=== PATIENT | female | born 1980 | race Caucasian/White ===

== ENCOUNTER → 2016-08-29 | Outpatient (CLI) | payer BC ==
[2016-08-29 16:39] LABS: Appearance,CSF Clear
[2016-08-31 13:28] LABS: Immunoglobulin G 634 mg/dL (700 - 1600)
[2016-08-31 22:55] LABS: Lyme Specimen Source Not Provided
== END | disposition home or self-care (01) ==
LOC: LABWHC1 09:42
PROVIDERS: ATTEND Psychiatry & Neurology Pain Medicine
DX: R90.82 White matter disease, unspecified (principal); R53.83 Other fatigue
CPT/HCPCS: 36415; 82040; 82042; 82784; 83873; 83916; 84157; 87476; 88108; 89050

== ENCOUNTER → 2017-05-26 | Outpatient (CLI) | payer BC ==
[2017-05-26 11:12] LABS: ALT 33 U/L (9-52); AST 20 U/L (14-36); Albumin 4.3 g/dL (3.5-5.0); Alkaline Phosphatase 51 U/L (38-126); Anion Gap 10 mmol/L; Blood Urea Nitrogen 11 mg/dL (7-17); Carbon Dioxide 26 mmol/L (22-30); Chloride 103 mmol/L (98-107); Glucose 92 mg/dL (74-99); Potassium 4.4 mmol/L (3.5-5.1); Sodium 139 mmol/L (137-145); Total Bilirubin 0.2 mg/dL (0.2-1.3); Total Protein 6.8 g/dL (6.3-8.2)
[2017-05-26 17:12] LABS: Folate, Serum 21.2 ng/mL
[2017-05-26 17:34] LABS: Hepatitis A Antibody IgM Non-Reactive (Non-Reactive); Hepatitis B Core IgM Non-Reactive (Non-Reactive)
[2017-05-26 17:38] LABS: HIV AB P24 Non-Reactive (Non-Reactive); HIV P24 AG Non-Reactive (Non-Reactive)
[2017-05-26 19:38] LABS: Hemoglobin A1C 4.9 % (4.0-6.0)
[2017-05-29 03:33] LABS: Varicella IgM Antibody 0.46 INDEX (<=0.90)
[2017-05-30 02:24] LABS: Vitamin B1 48 ug/L (38-122)
[2017-05-30 06:53] LABS: Vitamin B6 41 ug/L (5-50)
[2017-06-01 15:16] LABS: Nicotinuric Acid None Detected
== END | disposition home or self-care (01) ==
LOC: LABWHC1 09:51
PROVIDERS: ATTEND Psychiatry & Neurology Pain Medicine
DX: G35 Multiple sclerosis (principal)
CPT/HCPCS: 36415; 80053; 80074; 82607; 82746; 83036; 84207; 84425; 84591; 86787; 87390; 93005

== ENCOUNTER → 2018-03-08 | Outpatient (CLI) | payer BC ==
[2018-03-08 13:09] LABS: Basophils % (A) 0 %; Eosinophils # (A) 0.2 k/uL (0-0.7); Eosinophils % (A) 2 %; HCT 35.4 % (34.0-46.0); HGB 11.6 gm/dL (11.4-16.0); Lymphocytes # (A) 0.9 k/uL (1.0-4.8); Lymphocytes % (A) 13 %; MCHC 32.8 g/dL (31.0-37.0); MCV 82.3 fL (80.0-100.0); Monocytes # (A) 0.3 k/uL (0-1.0); Monocytes % (A) 5 %; Neutrophils # (A) 5.2 k/uL (1.3-7.7); Neutrophils % (A) 78 %; Platelet Count 291 k/uL (150-450); WBC 6.8 k/uL (3.8-10.6)
[2018-03-08 13:30] LABS: ALT 31 U/L (9-52); AST 20 U/L (14-36); Albumin 3.9 g/dL (3.5-5.0); Alkaline Phosphatase 42 U/L (38-126); Anion Gap 5 mmol/L; Blood Urea Nitrogen 11 mg/dL (7-17); Calcium 9.7 mg/dL (8.4-10.2); Carbon Dioxide 24 mmol/L (22-30); Chloride 107 mmol/L (98-107); Glucose 89 mg/dL (74-99); Potassium 4.4 mmol/L (3.5-5.1); Sodium 136 mmol/L (137-145); Total Bilirubin 0.3 mg/dL (0.2-1.3); Total Protein 6.3 g/dL (6.3-8.2)
[2018-03-08 13:45] LABS: T4, Free (Free Thyroxine) 1.05 ng/dL (0.78-2.19)
[2018-03-08 18:44] LABS: Folate, Serum 16.8 ng/mL
[2018-03-08 18:46] LABS: Vitamin D 25 Hydroxy 29.7 ng/mL (30.0-100.0)
[2018-03-08 20:15] LABS: Hepatitis A Antibody IgM Non-Reactive (Non-Reactive); Hepatitis B Core IgM Non-Reactive (Non-Reactive); Hepatitis B Surface AB- Quant 3.5 mIU/mL
[2018-03-08 20:39] LABS: HIV 1 AB Non-Reactive (Non-Reactive); HIV AB P24 Non-Reactive (Non-Reactive); HIV P24 AG Non-Reactive (Non-Reactive)
--- NOTE | 2018-03-09 07:59 | MR ---
EXAMINATION TYPE: MR brain/cspine wo/w DATE OF EXAM: 03/08/2018 COMPARISON: Outside brain and cervical spine MRI May 11, 2017 HISTORY: MS TECHNIQUE: Multiplanar, multisequence images of the cervical spine, brain, and brainstem are all performed witho ut and with IV contrast, utilizing 11 mL intravenous Gadavist gadolinium contrast is administered int ravenously. Demyelinating disease protocol with additional Sagittal Flair sequence performed of the brain and brainstem and PD sagittal sequence of cervical spine all acquired. FINDINGS: BRAIN: T2 Lesions Present : Yes Approximate Number of Lesions: Approximately 10-12 Locations Identified : Scattered Size of Reference Lesion(s): 1. 2.2 x 1.4 x 1.6 cm posterior left frontal subcortical enhancing lesion axial image 19 and sagittal image 6 redemonstrated felt larger in size versus prior. 2 1.0 x 0.7 x 0.8 cm on axial image 25 and sagittal image 14 high left parietal subcortical lesion st able from prior Enhancing Lesion(s) Present: Yes 6. Stable single enhancing lesion. T1 Hypointense Lesion(s) Present: Yes Change from Prior: Stable Diffusion weighted images demonstrate no evidence of a recent infarct or other diffusion abnormality. There is no worrisome extra-axial fluid collection. The ventricular system and cisternal spaces ar e normal in size and appearance. The brain volume is age appropriate. Midline structures demonstrate normal morphology. The craniocervical junction appears within normal limits. Post contrast images demonstrate no abnormal enhancement. The dural venous sinuses appear pa tent. The visualized sinuses are clear and the globes are intact. IMPRESSION: Mild to moderate white matter changes most likely on basis of known multiple sclerosis re demonstrated. No new lesions are seen. Dominant enhancing lesion is slightly larger versus prior crowley orion. C-SPINE: FINDINGS: Sagittal images of the cervical spine show the craniocervical junction to remains within no rmal limits. The cervical and upper thoracic spinal cord is normal in course, caliber, and signal. Vertebral alignment is stable and anatomic. The vertebral body and intravertebral disk heights are n ormal. No suspicious posterior disc herniations are seen. The bone marrow signal intensity is within normal limits. No suspicious enhancement is noted Axial images show there is no significant focal disk disease, spinal canal stenosis, neural foraminal narrowing, or spinal cord compromise at any cervical level. IMPRESSION: Unremarkable MRI of the cervical spine, no significant change from prior. No evidence for demyelinating disease involvement in the cervical spinal cord.
[2018-03-13 09:28] LABS: Vitamin B1 65 ug/L (38-122)
[2018-03-14 17:20] LABS: Nicotinuric Acid None Detected
== END | disposition home or self-care (01) ==
LOC: RADMRIMAIN 11:16
PROVIDERS: ATTEND Psychiatry & Neurology Neurology
DX: G35 Multiple sclerosis (principal); Z51.81 Encounter for therapeutic drug level monitoring
CPT/HCPCS: 84591; 84207; 84439; 84425; 84481; 80053; 80074; 82607; 82746; 84443; 85025; 86706; 82306; 86704; 87390; 83036; 70553; 72156; 36415; A9585

== ENCOUNTER → 2019-01-29 | Outpatient (CLI) | payer BC ==
[2019-01-29 14:47] VITALS: BP 168/92; PULSE 99; RESP 16; TEMP 98.2; BMI 43.7
--- NOTE | 2019-01-29 22:14 | P.BASOAP ---
Subjective Progress Note Date: 01/29/19 Principal diagnosis: Morbid obesity Patient is known to our service. Patient with history of previous lap band placement. For the last few months has had increasing heartburn. Dysphagia every 1-2 days. Patient's weight currently is close to her preoperative weight. Diagnosed with a mass in the last few years. Stress lately. Patient was unsure how much fluid in her band. Objective - Vital Signs Vital signs: Vital Signs Temp 98.2 F 01/29/19 14:39 Pulse 99 01/29/19 14:39 Resp 16 01/29/19 14:39 BP 168/92 01/29/19 14:39 Pulse Ox Intake & Output 01/29/19 01/29/19 01/30/19 06:59 18:59 06:59 Weight 115.439 kg - Exam Abdomen: Soft, nontender, nondistended Assessment/Plan (1) GERD (gastroesophageal reflux disease) Narrative/Plan: Clinical scenario discussed with the patient in detail. Under sterile condition her band was accessed. No fluid present within the port. Patient is interested in band removal with given the suspected leaking port is reasonable. We'll schedule upper endoscopy at this time. We'll plan band removal following. The risks and benefits of both upper endoscopy and lap and removal discussed in detail with the patient and her mother. Risks of bleeding, infection, perforation, laparotomy, persistent dysphagia and reflux, weight gain reviewed. She understands and wishes to proceed. Plan: Date: 01/29/19 Initial Weight: 117.934 kg Initial BMI: 44.6 Current Weight: 115.439 kg Current BMI: 43.7 Type of Surgery: Adjustable Gastric Banding Total Volume in Band: Previous Volume: Volume Removed: Volume Added: Band Size:
== END | disposition home or self-care (01) ==
LOC: BARWHC3 14:18
PROVIDERS: ATTEND Surgery
DX: K21.9 Gastro-esophageal reflux disease without esophagitis (principal); Z98.84 Bariatric surgery status
CPT/HCPCS: 99212

== ENCOUNTER → 2019-02-01 | Outpatient (CLI) | payer BC ==
[2019-02-01 13:59] LABS: Basophils % (A) 1 %; Eosinophils # (A) 0.2 k/uL (0-0.7); Eosinophils % (A) 2 %; HCT 38.1 % (34.0-46.0); HGB 12.4 gm/dL (11.4-16.0); Lymphocytes # (A) 0.9 k/uL (1.0-4.8); Lymphocytes % (A) 11 %; MCH 27.5 pg (25.0-35.0); MCHC 32.6 g/dL (31.0-37.0); MCV 84.5 fL (80.0-100.0); Mean Platelet Volume 6.1; Monocytes # (A) 0.4 k/uL (0-1.0); Monocytes % (A) 5 %; Neutrophils # (A) 7.1 k/uL (1.3-7.7); Neutrophils % (A) 81 %; Platelet Count 293 k/uL (150-450); RDW 14.5 % (11.5-15.5); WBC 8.7 k/uL (3.8-10.6)
[2019-02-01 14:09] LABS: ALT 30 U/L (9-52); AST 20 U/L (14-36); African American GFR (CKD) >90 (>60 ml/min/1.73 sqM); Albumin 4.3 g/dL (3.5-5.0); Alkaline Phosphatase 49 U/L (38-126); Anion Gap 8 mmol/L; Blood Urea Nitrogen 13 mg/dL (7-17); Calcium 9.8 mg/dL (8.4-10.2); Carbon Dioxide 27 mmol/L (22-30); Chloride 104 mmol/L (98-107); Glucose 103 mg/dL (74-99); Potassium 4.4 mmol/L (3.5-5.1); Sodium 139 mmol/L (137-145); Total Bilirubin 0.4 mg/dL (0.2-1.3); Total Protein 6.8 g/dL (6.3-8.2)
== END | disposition home or self-care (01) ==
LOC: LABPAT 12:45
PROVIDERS: ATTEND Surgery
DX: Z01.818 Encounter for other preprocedural examination (principal); Z01.812 Encounter for preprocedural laboratory examination
CPT/HCPCS: 80053; 85025; 93005

== ENCOUNTER 2019-02-20 09:14 | Day surgery (SDC) | payer BC ==
[2019-02-15 13:18] VITALS: BMI 42.9
[~2019-02-20 09:14] MED LIST: LACTATED RINGERS 1,000 ML IV SCH; LIDOCAINE 1% 20 ML VIAL (10MG/ML) FOR IV START INTRADERMA PRN
[2019-02-20 09:34] VITALS: RESP 16; TEMP 97.5
--- NOTE | 2019-02-20 09:42 | P.GSHP ---
History of Present Illness H&P Date: 02/20/19 Chief Complaint: Dysphagia, heartburn Patient seen recently in the bariatric clinic. History of previous lap band placement. Patient lately has had dysphagia and worsening heartburn. During recent visit the patient's port was emptied and we suspect a leak from the lap band tubing. Past Medical History Past Medical History: Cancer, GERD/Reflux, Musculoskeletal Disorder, Thyroid Disorder Additional Past Medical History / Comment(s): Hx of hodgkins lymphoma, melanoma on back. Muscular Sclerosis. History of Any Multi-Drug Resistant Organisms: None Reported Past Surgical History: Bariatric Surgery, Orthopedic Surgery Additional Past Surgical History / Comment(s): Right ankle surgery, melanoma removed from back. Past Anesthesia/Blood Transfusion Reactions: No Reported Reaction Past Psychological History: No Psychological Hx Reported Smoking Status: Never smoker Past Alcohol Use History: Occasional Past Drug Use History: None Reported - Past Family History Father Family Medical History: Cancer Additional Family Medical History / Comment(s): Prostate cancer. Medications and Allergies Home Medications Medication Instructions Recorded Confirmed Type Levothyroxine Sodium 100 mcg PO QAM 02/15/19 02/20/19 History Nalprexone 4.5 mg PO DAILY 02/15/19 02/20/19 History Allergies Allergy/AdvReac Type Severity Reaction Status Date / Time adhesive AdvReac Rash/Hives Verified 02/20/19 09:39 Surgical - Exam Vital Signs Temp Pulse Resp BP Pulse Ox 97.5 F L 72 16 149/88 98 02/20/19 09:33 02/20/19 09:33 02/20/19 09:33 02/20/19 09:33 02/20/19 09:33 Physical exam: General: Well-developed, well-nourished HEENT: Normocephalic, sclerae nonicteric Abdomen: Nontender, nondistended Extremities: No edema Neuro: Alert and oriented Assessment and Plan (1) GERD (gastroesophageal reflux disease) Narrative/Plan: Will proceed with upper endoscopy at this time. Current Visit: No Status: Acute Code(s): K21.9 - GASTRO-ESOPHAGEAL REFLUX DISEASE WITHOUT ESOPHAGITIS SNOMED Code(s): 554583631
[2019-02-20] MEDS ORDERED: LIDOCAINE 1% INJ 10MG/ML (20 ML MDV) ONE (09:49)
[2019-02-20] MEDS ORDERED: PROPOFOL 10 MG/ML 20 ML VIAL IV ONE (09:49)
--- NOTE | 2019-02-20 09:57 | P.PCN ---
Date of Procedure: 02/20/19 Procedure(s) Performed: Preoperative Dx: GERD, dysphagia Postoperative Dx: Mild gastritis, mild distal esophagitis Procedure: EGD with Bx Anesthesia: Sedation Endoscopist: Dr. Almodovar Specimens: Antrum, distal esophagus Endoscopic Procedure: The patient was on the endoscopy table in the left decubitus position. The Olympus gastroscope was inserted into the oropharynx and passed under direct visualization to the region of the third portion of the duodenum. From that point the scope was slowly withdrawn inspecting all surfaces carefully. There were no neoplastic inflammatory or polypoid lesions throughout the duodenum. The pylorus was widely patent. The stomach was carefully inspected. There was mild gastritis present. A biopsy of the antrum took place to rule out H. pylori. Retroflexion revealed a normal band plication without evidence of erosion or prolapse. The esophagus was then carefully examined. There was a single small linear erosion present. A biopsy of the distal esophagus took place at that location. The remainder the esophagus appear normal. The patient was then taken to the recovery room in stable condition per anesthesia guidelines. Recommendations: Wait biopsy results. Proceed with band removal.
[2019-02-20 10:15] VITALS: BP 133/85; PULSE 85
== END 2019-02-20 10:33 | disposition home or self-care (01) ==
LOC: ORWHC2ENDO 09:14
PROVIDERS: ATTEND Surgery
DX: K29.50 Unspecified chronic gastritis without bleeding (principal); Z98.84 Bariatric surgery status; K21.9 Gastro-esophageal reflux disease without esophagitis; E07.9 Disorder of thyroid, unspecified; Z85.72 Personal history of non-Hodgkin lymphomas; Z85.820 Personal history of malignant melanoma of skin; Z80.42 Family history of malignant neoplasm of prostate; E66.9 Obesity, unspecified; Z68.41 Body mass index [BMI] 40.0-44.9, adult; Z79.890 Hormone replacement therapy; Z79.891 Long term (current) use of opiate analgesic; Z91.09 Other allergy status, other than to drugs and biological substances
CPT/HCPCS: 81025; 88305; 43239; J2001; J2704

== ENCOUNTER 2019-03-01 10:44 | Day surgery (SDC) | payer BC ==
[2019-02-22 10:39] VITALS: BMI 42.9
[~2019-03-01 10:44] MED LIST changes: +DEXAMETHASONE SOD PHOSPHATE 10 MG/ML 1 ML VIAL IV ONE; +HEPARIN SODIUM,PORCINE 5,000 UNIT/ML 1 ML VIAL SQ ONE; -LIDOCAINE 1% 20 ML VIAL (10MG/ML) FOR IV START INTRADERMA PRN; +MIDAZOLAM 2 MG/2 ML VIAL IV PRN; +ONDANSETRON 4 MG/2 ML VIAL IVP ONE; +SCOPOLAMINE 1.5MG/72HR PATCH TRANSDERM ONE
[2019-03-01] MEDS ORDERED: LIDOCAINE 1% 20 ML VIAL (10MG/ML) FOR IV START INTRADERMA ONE (11:14)
--- NOTE | 2019-03-01 13:31 | P.GSHP ---
History of Present Illness H&P Date: 03/01/19 Chief Complaint: Intractable vomiting, malfunctioning LAP-BAND 38-year-old female well known to our service. She is here today for band removal. Patient has history of intermittent reflux and frequent vomiting. Patient's band was recently accessed and the port was noted to be empty. Recent upper endoscopy with no evidence of erosion or prolapse. Past Medical History Past Medical History: Cancer, GERD/Reflux, Musculoskeletal Disorder, Thyroid Disorder Additional Past Medical History / Comment(s): Hx of hodgkins lymphoma, melanoma on back. Muscular Sclerosis. History of Any Multi-Drug Resistant Organisms: None Reported Past Surgical History: Bariatric Surgery, Orthopedic Surgery Additional Past Surgical History / Comment(s): Right ankle surgery, melanoma removed from back. Past Anesthesia/Blood Transfusion Reactions: No Reported Reaction Past Psychological History: No Psychological Hx Reported Smoking Status: Never smoker Past Alcohol Use History: Occasional Past Drug Use History: None Reported - Past Family History Father Family Medical History: Cancer Additional Family Medical History / Comment(s): Prostate cancer. Medications and Allergies Home Medications Medication Instructions Recorded Confirmed Type Levothyroxine Sodium 100 mcg PO QAM 02/15/19 03/01/19 History Naltrexone 4.5 mg PO DAILY 02/22/19 03/01/19 History Allergies Allergy/AdvReac Type Severity Reaction Status Date / Time adhesive AdvReac Rash/Hives Verified 03/01/19 11:09 Surgical - Exam Vital Signs Temp Pulse Resp BP Pulse Ox 97.6 F 91 18 189/86 99 03/01/19 11:07 03/01/19 11:07 03/01/19 11:07 03/01/19 11:07 03/01/19 11:07 Physical exam: General: Well-developed, well-nourished HEENT: Normocephalic, sclerae nonicteric Abdomen: Nontender, nondistended Extremities: No edema Neuro: Alert and oriented Assessment and Plan (1) GERD (gastroesophageal reflux disease) Narrative/Plan: Will proceed with laparoscopic lap band removal at this time. Risks of bleeding, infection, gastric or bowel perforation, leak, abscess, persistent dysphagia, weight gain, seroma, hernia reviewed. She understands and wishes to proceed. Current Visit: No Status: Acute Code(s): K21.9 - GASTRO-ESOPHAGEAL REFLUX DISEASE WITHOUT ESOPHAGITIS SNOMED Code(s): 074860513
[2019-03-01] MEDS ORDERED: LIDOCAINE 1% INJ 10MG/ML (20 ML MDV) ONE (13:34)
[2019-03-01] MEDS ORDERED: fentaNYL (PF) 50 MCG/ML 2 ML AMP ONE (13:34)
[2019-03-01] MEDS ORDERED: MIDAZOLAM 2 MG/2 ML VIAL ONE (13:34)
[2019-03-01] MEDS ORDERED: KETOROLAC 30 MG/ML 1 ML VIAL ONE (13:34)
[2019-03-01] MEDS ORDERED: GLYCOPYRROLATE 0.2 MG/ML 2 ML VIAL ONE (13:34)
[2019-03-01] MEDS ORDERED: HYDROmorphone (PF) 1 MG/ML ONE (13:34)
[2019-03-01] MEDS ORDERED: ROCURONIUM BROMIDE 10 MG/ML 10 ML VIAL IV ONE (13:34)
[2019-03-01] MEDS ORDERED: PROPOFOL 10 MG/ML 20 ML VIAL IV ONE (13:34)
[2019-03-01] MEDS ORDERED: NEOSTIGMINE 1 MG/ML 10 ML VIAL ONE (13:34)
[2019-03-01] MEDS ORDERED: BUPIVACAINE (PF) 0.5% 30 ML VIAL SQ ONE ×2 (14:05)
[2019-03-01] MEDS ORDERED: LACTATED RINGERS 1,000 ML IV ONE (14:28)
[2019-03-01] MEDS ORDERED: NALOXONE 0.4 MG/ML 1 ML VIAL IV PRN (14:47)
[2019-03-01] MEDS ORDERED: HYDROcodone/APAP 5-325MG 1 EACH TAB PO PRN (14:47)
--- NOTE | 2019-03-01 14:49 | P.OP ---
Date of Procedure: 03/01/19 Procedure(s) Performed: PREOPERATIVE DIAGNOSIS: Band intolerance/abdominal pain/broken port POSTOPERATIVE DIAGNOSIS: Same PROCEDURE: Laparoscopic lap band removal SURGEON: Scooby EBL: Minimal ANESTHESIA: General COMPLICATIONS: None OPERATIVE PROCEDURE: The patient was brought and placed on the operating room table in the supine position. The patient was placed under general anesthesia at that time. The patient was then placed in lithotomy. The abdomen was prepped and draped in the usual sterile fashion. The previous port incision was localized and then incised using a scalpel. The port was easily excised using electrocautery. The port was inspected and was noted to have sheared away from the tubing. The 2 portions were no longer connected to one another. Entrance into the perineal cavity occurred using a 5 mm optical trocar through the old trocar entrance site. Insufflation took place to 15 mmHg. A right subxiphoid 5 mm trocar was placed. This was then removed and the medium Hunter hook was used to elevate the left lobe of the liver anteriorly. An additional 5 mm trocar was placed under direct visualization in the left lateral upper quadrant. The original 5 mm trocar was switched to a 15 mm trocar. A additional 5 mm trocar was placed in the right upper quadrant under direct dilatation. There were adhesions to the band in the buccal that were lysed using electrocautery. The band was then cut using the laparoscopic denita. The band was then removed easily in 2 portions through the 15 mm trocar site. The stomach itself was inspected and revealed no evidence of erosion or prolapse. The trochars were removed. The fascia at the 15 mm site was closed using a Jorden-Shruthi 0 Vicryl stitch. The subcutaneous tissues at the port site was closed using a 3-0 Vicryl suture. The skin at all 4 incision sites were closed using 4-0 Monocryl sutures. Skin glue was then applied. DISPOSITION: Stable to recovery room
[2019-03-01] MEDS ORDERED: ONDANSETRON 4 MG/2 ML VIAL IVP ONE (14:52)
[2019-03-01 14:53] VITALS: TEMP 98.6
[2019-03-01] MEDS: HYDROmorphone 0.5 MG/0.5 ML SYRINGE IVP PRN ×3 (14:58→15:23)
[2019-03-01 15:37] VITALS: RESP 18
[2019-03-01 16:07] VITALS: BP 128/65; PULSE 58
== END 2019-03-01 17:11 | disposition home or self-care (01) ==
LOC: OR 10:44
PROVIDERS: ATTEND Surgery
DX: T85.518A Breakdown (mechanical) of other gastrointestinal prosthetic devices, implants and grafts, initial encounter (principal); Z46.51 Encounter for fitting and adjustment of gastric lap band; K66.0 Peritoneal adhesions (postprocedural) (postinfection); R13.10 Dysphagia, unspecified; K21.9 Gastro-esophageal reflux disease without esophagitis; M62.89 Other specified disorders of muscle; E07.9 Disorder of thyroid, unspecified; G35 Multiple sclerosis; Z85.71 Personal history of Hodgkin lymphoma; Z85.820 Personal history of malignant melanoma of skin; Z98.890 Other specified postprocedural states; Z79.890 Hormone replacement therapy; Z79.899 Other long term (current) drug therapy; Z91.048 Other nonmedicinal substance allergy status; Z80.42 Family history of malignant neoplasm of prostate
CPT/HCPCS: 81025; 43774; J2250; J1644; J1100; J2710; J0690; J2405; J2001; J3010; J1885; J1170 ×2; J2704

== ENCOUNTER → 2019-03-26 | Outpatient (CLI) | payer BC ==
[2019-03-26 14:24] VITALS: BP 162/81; PULSE 90; RESP 16; TEMP 98.2; BMI 43.4
--- NOTE | 2019-03-26 15:20 | P.BASOAP ---
Subjective Progress Note Date: 03/26/19 Principal diagnosis: Broken LAP-BAND Patient returns postoperative period underwent recent lap band removal. Doing well at this time. Mild pain at port site. No GERD symptoms. Tolerating diet. Objective - Vital Signs Vital signs: Vital Signs Temp 98.2 F 03/26/19 14:21 Pulse 90 03/26/19 14:21 Resp 16 03/26/19 14:21 BP 162/81 03/26/19 14:21 Pulse Ox Intake & Output 03/25/19 03/26/19 03/26/19 18:59 06:59 18:59 Weight 114.759 kg - Exam Abdomen: Soft, nondistended, incision clean and dry, minimal tenderness Assessment/Plan (1) GERD (gastroesophageal reflux disease) Narrative/Plan: Patient doing well postoperatively. Continue monitoring her caloric intake. Gradually increase these. Follow-up as needed. Plan: Date: 03/26/19 Initial Weight: 117.934 kg Initial BMI: 44.6 Current Weight: 114.759 kg Current BMI: 43.4 Type of Surgery: Total Volume in Band: Previous Volume: Volume Removed: Volume Added: Band Size:
== END | disposition home or self-care (01) ==
LOC: BARWHC3 14:01
PROVIDERS: ATTEND Surgery
DX: Z46.51 Encounter for fitting and adjustment of gastric lap band (principal); K21.9 Gastro-esophageal reflux disease without esophagitis
CPT/HCPCS: 99211

== ENCOUNTER → 2019-05-13 | Outpatient (CLI) | payer BC | END | disposition home or self-care (01) | LOC: LABWHC1 13:01 | PROVIDERS: ATTEND Psychiatry & Neurology Pain Medicine | DX: Z53.9 Procedure and treatment not carried out, unspecified reason (principal) ==

== ENCOUNTER → 2019-05-15 | Outpatient (CLI) | payer BC ==
[2019-05-15 12:39] LABS: Basophils % (A) 0 %; Eosinophils # (A) 0.1 k/uL (0-0.7); Eosinophils % (A) 1 %; HCT 37.8 % (34.0-46.0); HGB 12.1 gm/dL (11.4-16.0); Lymphocytes % (A) 13 %; MCH 26.8 pg (25.0-35.0); MCV 83.9 fL (80.0-100.0); Mean Platelet Volume 7.8; Monocytes # (A) 0.4 k/uL (0-1.0); Monocytes % (A) 5 %; Neutrophils # (A) 6.1 k/uL (1.3-7.7); Neutrophils % (A) 79 %; Platelet Count 271 k/uL (150-450); RBC 4.51 m/uL (3.80-5.40); RDW 14.5 % (11.5-15.5); WBC 7.8 k/uL (3.8-10.6)
[2019-05-15 19:19] LABS: ALT 22 U/L (8-44); AST 19 U/L (13-35); African American GFR (CKD) 126.5 (60.0-200.0); Albumin/Globulin Ratio 3.36 (1.60-3.17); Alkaline Phosphatase 56 U/L (41-126); BUN/Creat Ratio 15.71 Ratio (12.00-20.00); Calcium 9.5 mg/dL (8.7-10.3); Chloride 105 mmol/L (96-109); Globulin 1.4 g/dL (1.6-3.3); Glucose 102 mg/dL (70-110); Non-African American GFR(CKD) 109.1 (60.0-200.0); Potassium 4.1 mmol/L (3.5-5.5); Sodium 139 mmol/L (135-145); Total Bilirubin 0.4 mg/dL (0.3-1.2); Total Protein 6.1 g/dL (6.2-8.2)
[2019-05-15 19:55] LABS: Folate, Serum >24.0 ng/mL
[2019-05-15 20:02] LABS: Hemoglobin A1C 4.9 % (4.0-6.0)
[2019-05-15 20:47] LABS: Hepatitis B Core IgM Non-Reactive (Non-Reactive); Hepatitis B Surface AB- Quant 3.5 mIU/mL; Hepatitis B Surface Antibody Non-Reactive (Non-Reactive); Hepatitis B Surface Antigen Non-Reactive (Non-Reactive); Hepatitis C IgG Antibody Non-Reactive (Non-Reactive)
[2019-05-15 20:49] LABS: HIV 1 AB Non-Reactive (Non-Reactive); HIV 2 AB Non-Reactive (Non-Reactive); HIV AB P24 Non-Reactive (Non-Reactive); HIV P24 AG Non-Reactive (Non-Reactive)
[2019-05-17 15:02] LABS: Vit B1(Thiamine) 62 ug/L (38-122)
[2019-05-23 07:09] LABS: Nicotinamide None Detected; Nicotinic Acid None Detected; Nicotinuric Acid None Detected
== END | disposition home or self-care (01) ==
LOC: LABWHC1 12:00
PROVIDERS: ATTEND Psychiatry & Neurology Pain Medicine
DX: G35 Multiple sclerosis (principal)
CPT/HCPCS: 36415; 80053; 82306; 82607; 82746; 83036; 84207; 84425; 84439; 84443; 84481; 84591; 85025; 86705; 86706; 86787; 86803; 87340; 87390

== ENCOUNTER → 2020-05-27 | Outpatient (CLI) | payer BC ==
[2020-05-27 15:09] LABS: Basophils # (A) 0.04 X 10*3/uL (0.00-0.10); Basophils % (A) 0.6 %; Eosinophils # (A) 0.12 X 10*3/uL (0.04-0.35); Eosinophils % (A) 1.7 %; HCT 41.5 % (37.2-46.3); HGB 13.7 g/dL (12.0-15.0); Lymphocytes # (A) 1.09 X 10*3/uL (0.90-5.00); Lymphocytes % (A) 15.2 %; MCH 29.4 pg (27.0-32.0); MCV 89.1 fL (80.0-97.0); Mean Platelet Volume 10.6 fL (9.5-12.2); Monocytes # (A) 0.56 X 10*3/uL (0.20-1.00); Monocytes % (A) 7.8 %; Neutrophils # (A) 5.33 X 10*3/uL (1.80-7.70); Neutrophils % (A) 74.1 %; Platelet Count 292 X 10*3/uL (140-440); RBC 4.66 X 10*6/uL (4.10-5.20); WBC 7.18 X 10*3/uL (4.50-10.00)
[2020-05-27 18:52] LABS: HIV 2 AB Non-Reactive (Non-Reactive); HIV AB P24 Non-Reactive (Non-Reactive); HIV P24 AG Non-Reactive (Non-Reactive)
[2020-05-27 19:26] LABS: Hemoglobin A1C 4.7 % (4.0-6.0)
[2020-05-27 19:31] LABS: Hepatitis B Core IgM Non-Reactive (Non-Reactive); Hepatitis B Surface AB- Quant 3.5 mIU/mL; Hepatitis B Surface Antibody Non-Reactive (Non-Reactive); Hepatitis B Surface Antigen Non-Reactive (Non-Reactive)
[2020-05-28 01:49] LABS: ALT 21 U/L (8-44); AST 16 U/L (13-35); African American GFR (CKD) 132.1 (60.0-200.0); Alkaline Phosphatase 53 U/L (41-126); BUN/Creat Ratio 18.33 Ratio (12.00-20.00); Calcium 9.8 mg/dL (8.7-10.3); Carbon Dioxide 21.7 mmol/L (21.6-31.8); Chloride 107 mmol/L (96-109); Folate, Serum >24.0 ng/mL; Globulin 1.5 g/dL (1.6-3.3); Glucose 91 mg/dL (70-110); Potassium 4.4 mmol/L (3.5-5.5); Sodium 142 mmol/L (135-145); Total Bilirubin 0.6 mg/dL (0.3-1.2); Total Protein 6.6 g/dL (6.2-8.2)
[2020-05-29 05:04] LABS: Varicella IgM Antibody 0.22 INDEX (<=0.90)
== END | disposition home or self-care (01) ==
LOC: LABWHC1 10:00
PROVIDERS: ATTEND Psychiatry & Neurology Pain Medicine
DX: G35 Multiple sclerosis (principal)
CPT/HCPCS: 36415; 80053; 82306; 82607; 82746; 83036; 84207; 84425; 84439; 84443; 84481; 84591; 85025; 86704; 86705; 86706; 86787; 87340; 87390

== ENCOUNTER → 2021-06-03 | Outpatient (CLI) | payer BC ==
[2021-06-03 14:55] LABS: Basophils # (A) 0.05 X 10*3/uL (0.00-0.10); Basophils % (A) 0.4 %; Eosinophils # (A) 0.22 X 10*3/uL (0.04-0.35); Eosinophils % (A) 1.9 %; HCT 37.4 % (37.2-46.3); HGB 11.5 g/dL (12.0-15.0); Immature Grans, Automated 1.2 %; Lymphocytes # (A) 1.48 X 10*3/uL (0.90-5.00); Lymphocytes % (A) 13.1 %; MCH 26.7 pg (27.0-32.0); MCHC 30.7 g/dL (32.0-37.0); Mean Platelet Volume 9.6 fL (9.5-12.2); Monocytes # (A) 0.64 X 10*3/uL (0.20-1.00); Monocytes % (A) 5.7 %; NRBC Per 100 WBC 0 /100 WBCS (0.0-0.0); Neutrophils # (A) 8.77 X 10*3/uL (1.80-7.70); Neutrophils % (A) 77.7 %; Platelet Count 341 X 10*3/uL (140-440); RDW 14.1 % (11.5-14.5)
[2021-06-03 15:11] LABS: African American GFR (CKD) 133.6 (60.0-200.0); Albumin 3.7 g/dL (3.8-4.9); Albumin/Globulin Ratio 1.47 (1.60-3.17); Anion Gap 12.9 mmol/L (10.00-18.00); BUN/Creat Ratio 9.38 Ratio (12.00-20.00); Blood Urea Nitrogen 5.3 mg/dL (9.0-27.0); C Reactive Protein 6.1 mg/dL (0.00-0.80); Calcium 9.5 mg/dL (8.7-10.3); Carbon Dioxide 22.4 mmol/L (20.0-27.5); Globulin 2.5 g/dL (1.6-3.3); Non-African American GFR(CKD) 115.3 (60.0-200.0); Potassium 3.9 mmol/L (3.5-5.5); Total Bilirubin 0.4 mg/dL (0.30-1.20); Total Protein 6.1 g/dL (6.2-8.2)
[2021-06-03 16:46] LABS: Erythrocyte Sedimentation Rate 54 mm/Hr (0-20)
== END | disposition home or self-care (01) ==
LOC: LABWHC1 08:38
PROVIDERS: ATTEND Family Medicine
DX: R50.9 Fever, unspecified (principal); Z86.16 Personal history of COVID-19
CPT/HCPCS: 36415; 80053; 84145; 85025; 85652; 86140; 87040; 87070; 87086; 87205